=== PATIENT | female | born 1990 | race African-American/Black ===

== ENCOUNTER 2017-04-06 18:22 | Observation (INO) ==
[2017-04-06 19:00] LABS: Apearance,Urine Slightly Hazy (Clear); Bacteria,Urine Few /HPF (Few); Bilirubin,Urine Negative (Negative); Blood, Urine Small mg/dL (Negative); Glucose,Urine (UA) Negative (Negative); Ketones,Urine Negative (Negative); Mucus,Urine Few /LPF (Occasional); Nitrite,Urine Positive (Negative); Protein,Urine Negative; RBC,Urine 1 /HPF (0-4); Squamous Epithelial Cell,Urine Occasional /HPF (0-10); Urine Color Yellow (Yellow); Urine Specific Gravity 1.013 (1.001-1.035); Urine Urobilinogen < 2.0 EU/DL (0.2-1.0); WBC,Urine 78 /HPF (0-6)
[2017-04-06] MEDS ORDERED: AMPICILLIN INJ 2,000 MG in SODIUM CHLORIDE 0.9% 50 ML IV ONE (19:38)
[2017-04-06] MEDS ORDERED: ACETAMINOPHEN/CODEINE 300-30 MG TABLET PO PRN (19:41)
[2017-04-06] MEDS: LACTATED RINGERS 1,000 ML IV SCH (20:13)
[2017-04-06] MEDS: ONDANSETRON 4 MG/2 ML VIAL IV PRN (20:18)
[2017-04-06] MEDS: MEPERIDINE 50 MG/1 ML VIAL IV PRN (20:32)
[2017-04-07] MEDS: AMPICILLIN INJ 1,000 MG in SODIUM CHLORIDE 0.9% 50 ML IV SCH ×4 (01:45→19:55)
[2017-04-07] MEDS: LACTATED RINGERS 1,000 ML IV SCH ×6 (01:55→23:15)
[2017-04-07] MEDS: ONDANSETRON 4 MG/2 ML VIAL IV PRN ×3 (04:46→17:53)
[2017-04-07] MEDS: ACETAMINOPHEN 500 MG TABLET PO PRN (08:35)
[2017-04-07] MEDS ORDERED: MAGNESIUM HYDROXIDE SUSP 30 ML UDCUP PO PRN (09:36)
[2017-04-07] MEDS ORDERED: ACETAMINOPHEN 325 MG TABLET PO PRN (09:36)
[2017-04-07] MEDS: GENTAMICIN INJ 120 MG in PREMIX 1 EACH IV SCH ×2 (10:40→17:18)
[2017-04-07] MEDS: MEPERIDINE 50 MG/1 ML VIAL IV PRN ×2 (11:30→17:57)
[2017-04-07 14:43] LABS: Basophils % 0.2 % (0.0-0.8); Eosinophils # 0.2 10*3/uL (0.0-0.87); Eosinophils % 1.7 % (0.00-10.9); Hematocrit 31.9 VOL% (35.7-47.0); Hemoglobin 10.5 GM/DL (12.0-16.0); Immature Granulocytes % 0.3 %; Immature Granulocytes Absolute 0.03 #; Lymphocytes # 2.7 10*3/uL (1.4-4.0); Lymphocytes % 26.1 % (21.3-54.2); Mean Corpuscular HGB Conc 32.9 GM/DL (32-36); Mean Corpuscular Hemoglobin 27 PG (27-34); Mean Corpuscular Volume 82.4 FL (87-102); Mean Platelet Volume 10.3 FL (9.6-12.0); Monocytes # 0.7 10*3/uL (0.11-0.8); Monocytes % 6.7 % (1.7-12.7); Neutrophils # 6.7 10*3/uL (1.4-7.4); Platelet Count 247 T/CUMM (130-400); Red Blood Count 3.87 MC/CUMM (3.8-5.5); Red Cell Distribution Width 14.6 % (9.3-17.3); White Blood Count 10.4 T/CUMM (4-12)
[2017-04-07 15:15] LABS: Alanine Aminotransferase 16 U/L (13-56); Albumin 2.4 G/DL (3.4-5.0); Alkaline Phosphatase 64 U/L (45-117); Aspartate Amino Transferase 14 U/L (0-37); Bilirubin,Total < 0.39 MG/DL (0.2-1.0); Blood Urea Nitrogen 5 MG/DL (7-18); Calcium 8.1 MG/DL (8.5-10.1); Glucose 85 MG/DL (74-106); Osmolality,Calculated 268.8 MOS/KG (273-304); Potassium 3.9 MMOL/L (3.5-5.1); Sodium 137 MMOL/L (136-145); Total Protein 6.1 G/DL (6.4-8.3)
[2017-04-07 15:35] LABS: Hepatitis B Surface Ag Quant < 0.10 Index; Hepatitis B Surface Ag Result Negative (Negative)
[2017-04-07 15:35] LABS: Rubella Antibody IgG 16.7 IU/ML
[2017-04-07 16:03] LABS: HIV Antigen/Antibody Result Nonreactive (Nonreactive)
[2017-04-08] MEDS: GENTAMICIN INJ 120 MG in PREMIX 1 EACH IV SCH ×2 (01:28→10:13)
[2017-04-08] MEDS: AMPICILLIN INJ 1,000 MG in SODIUM CHLORIDE 0.9% 50 ML IV SCH ×2 (02:33→07:57)
[2017-04-08] MEDS: LACTATED RINGERS 1,000 ML IV SCH ×2 (07:58→17:29)
[2017-04-08] MEDS: ACETAMINOPHEN 500 MG TABLET PO PRN (10:16)
[2017-04-08] MEDS: ONDANSETRON 4 MG/2 ML VIAL IV PRN ×2 (11:44→23:24)
[2017-04-08] MEDS: MEPERIDINE 50 MG/1 ML VIAL IV PRN ×2 (11:45→23:30)
[2017-04-08] MEDS: ceFAZolin 1,000 MG in SYRINGE 1 EACH IV SCH ×2 (13:54→21:27)
[2017-04-08] MEDS: FERROUS SULFATE 325 MG TABLET PO SCH ×2 (14:52→21:27)
[2017-04-08] MEDS ORDERED: GENTAMICIN INJ 500 MG in SODIUM CHLORIDE 0.9% 100 ML IV SCH (18:00)
[2017-04-08] MEDS ORDERED: TERCONAZOLE 0.4% VAG CREAM 45 GM TUBE VAG SCH (23:45)
[2017-04-09] MEDS: LACTATED RINGERS 1,000 ML IV SCH (00:51)
[2017-04-09] MEDS ORDERED: SODIUM CHLORIDE 0.9% 50 ML IV ONE (02:20)
[2017-04-09] MEDS: ceFAZolin 1,000 MG in SYRINGE 1 EACH IV SCH ×2 (02:25→08:26)
[2017-04-09 07:25] VITALS: BP 118/72
== END 2017-04-09 11:10 | disposition home or self-care (01) ==
LOC: N.LDOUT 18:22 → N.OB 18:22 → N.LD 18:26 → N.OB 04-07 11:09
PROVIDERS: ADMIT Obstetrics & Gynecology; ATTEND Obstetrics & Gynecology

== ENCOUNTER 2017-07-21 07:09 | Inpatient (IN) ==
[2017-07-21] MEDS ORDERED: FAMOTIDINE 20 MG/2 ML VIAL IV ONE (07:37)
[2017-07-21] MEDS ORDERED: CITRIC ACID/SODIUM CITRATE 30 ML UDCUP PO ONE (07:37)
[2017-07-21] MEDS ORDERED: ceFAZolin 1,000 MG in SYRINGE 1 EACH IV ONE (07:37)
[2017-07-21] MEDS ORDERED: LACTATED RINGERS 1,000 ML IV SCH (08:00)
[2017-07-21 08:35] LABS: Basophils % 0.3 % (0.0-0.8); Eosinophils # 0.1 10*3/uL (0.0-0.87); Eosinophils % 0.6 % (0.00-10.9); Hematocrit 34.6 VOL% (35.7-47.0); Hemoglobin 10.9 GM/DL (12.0-16.0); Immature Granulocytes % 0.5 %; Immature Granulocytes Absolute 0.07 #; Lymphocytes # 3.6 10*3/uL (1.4-4.0); Lymphocytes % 24.5 % (21.3-54.2); Mean Corpuscular HGB Conc 31.5 GM/DL (32-36); Mean Corpuscular Hemoglobin 27 PG (27-34); Mean Corpuscular Volume 84.2 FL (87-102); Mean Platelet Volume 10.5 FL (9.6-12.0); Monocytes % 7.1 % (1.7-12.7); Neutrophils # 9.8 10*3/uL (1.4-7.4); Platelet Count 282 T/CUMM (130-400); Red Blood Count 4.11 MC/CUMM (3.8-5.5); Red Cell Distribution Width 13.6 % (9.3-17.3); White Blood Count 14.5 T/CUMM (4-12)
[2017-07-21] MEDS ORDERED: OXYTOCIN 10 UNIT/ML VIAL IM ONE (08:50)
[2017-07-21 10:03] LABS: Cord Venous Blood HCO3 23.4 MMOL/L; Cord Venous Blood PCO2 41.7 MMHG; Cord Venous Blood PO2 32.7 MMHG
[2017-07-21 10:11] LABS: Apearance,Urine CLEAR (Clear); Bilirubin,Urine Negative (Negative); Blood, Urine Small mg/dL (Negative); Glucose,Urine (UA) Negative (Negative); Ketones,Urine 20 mg/dL (Negative); Mucus,Urine Many /LPF (Occasional); Nitrite,Urine Negative (Negative); Protein,Urine 30 MG/DL; RBC,Urine 2 /HPF (0-4); Squamous Epithelial Cell,Urine Occasional /HPF (0-10); Urine Color Yellow (Yellow); Urine Specific Gravity 1.025 (1.001-1.035); Urine Urobilinogen < 2.0 EU/DL (0.2-1.0); WBC,Urine 4 /HPF (0-6)
[2017-07-21] MEDS ORDERED: OXYTOCIN/LR 30 UNIT/1,000 ML BAG IV ONE (10:17)
[2017-07-21] MEDS ORDERED: MORPHINE 10 MG/10 ML VIAL ONE (11:30)
[2017-07-21] MEDS ORDERED: fentaNYL 100 MCG/2 ML VIAL ONE (11:30)
[2017-07-21] MEDS ORDERED: ONDANSETRON 4 MG/2 ML VIAL ONE (11:38)
[2017-07-21] MEDS ORDERED: SODIUM BICARBONATE 2.4 MEQ/5 ML VIAL ONE (11:38)
[2017-07-21] MEDS ORDERED: LACTATED RINGERS 1,000 ML IV ONE (11:39)
[2017-07-21] MEDS ORDERED: LIDOCAINE MPF 2% /EPI 20 ML VIAL ONE (11:39)
[2017-07-21] MEDS ORDERED: OXYTOCIN/LR 20 UNIT/1,000 ML BAG IV ONE ×2 (11:46→14:12)
[2017-07-21] MEDS ORDERED: hydrOXYzine HCL 25 MG/1 ML VIAL IM PRN (12:26)
[2017-07-21] MEDS ORDERED: ONDANSETRON 4 MG/2 ML VIAL IV PRN ×2 (12:26→14:12)
[2017-07-21] MEDS: HYDROmorphone 2 MG/1 ML VIAL IV PRN ×3 (12:45→20:32)
[2017-07-21] MEDS: diphenhydrAMINE 50 MG/1 ML VIAL IV PRN ×2 (13:45→20:33)
[2017-07-21] MEDS ORDERED: ceFAZolin 1,000 MG in SYRINGE 1 EACH IV SCH (14:12)
[2017-07-21] MEDS ORDERED: ACETAMINOPHEN 325 MG TABLET PO PRN (14:12)
[2017-07-21] MEDS ORDERED: RHO(D) IMMUNE GLOBULIN 300 MCG SYRINGE IM ONE (14:12)
[2017-07-21] MEDS: hydrOXYzine HCL 25 MG TABLET PO PRN ×2 (14:32→20:17)
[2017-07-21] MEDS: ceFAZolin 1,000 MG in SYRINGE 1 EACH IV SCH (17:47)
[2017-07-21 18:34] LABS: Basophils % 0.2 % (0.0-0.8); Eosinophils # 0.1 10*3/uL (0.0-0.87); Eosinophils % 0.5 % (0.00-10.9); Hematocrit 31.9 VOL% (35.7-47.0); Hemoglobin 10.2 GM/DL (12.0-16.0); Immature Granulocytes % 0.5 %; Immature Granulocytes Absolute 0.06 #; Lymphocytes # 2.4 10*3/uL (1.4-4.0); Lymphocytes % 18.3 % (21.3-54.2); Mean Corpuscular Hemoglobin 27 PG (27-34); Mean Corpuscular Volume 84.4 FL (87-102); Mean Platelet Volume 10.1 FL (9.6-12.0); Monocytes # 0.9 10*3/uL (0.11-0.8); Monocytes % 6.8 % (1.7-12.7); Neutrophils # 9.8 10*3/uL (1.4-7.4); Neutrophils % 73.7 % (38.7-73.9); Platelet Count 242 T/CUMM (130-400); Red Blood Count 3.78 MC/CUMM (3.8-5.5); Red Cell Distribution Width 13.5 % (9.3-17.3); White Blood Count 13.3 T/CUMM (4-12)
[2017-07-21] MEDS: DOCUSATE SODIUM 100 MG CAPSULE PO SCH (20:08)
[2017-07-21] MEDS: IBUPROFEN 800 MG TABLET PO PRN (20:08)
[2017-07-21] MEDS: LACTATED RINGERS 1,000 ML IV SCH (22:37)
[2017-07-22] MEDS ORDERED: diphenhydrAMINE 50 MG/1 ML VIAL IV PRN (00:24)
[2017-07-22] MEDS ORDERED: ONDANSETRON 4 MG/2 ML VIAL IV PRN (00:25)
[2017-07-22] MEDS: HYDROmorphone 2 MG/1 ML VIAL IV PRN (01:22)
[2017-07-22] MEDS: ceFAZolin 1,000 MG in SYRINGE 1 EACH IV SCH (02:03)
[2017-07-22] MEDS: IBUPROFEN 800 MG TABLET PO PRN ×2 (04:42→17:50)
[2017-07-22] MEDS: LACTATED RINGERS 1,000 ML IV SCH (05:01)
[2017-07-22 06:37] LABS: Basophils % 0.2 % (0.0-0.8); Eosinophils # 0.2 10*3/uL (0.0-0.87); Eosinophils % 1.4 % (0.00-10.9); Hematocrit 29.1 VOL% (35.7-47.0); Hemoglobin 9.4 GM/DL (12.0-16.0); Immature Granulocytes % 0.6 %; Immature Granulocytes Absolute 0.08 #; Lymphocytes # 2.2 10*3/uL (1.4-4.0); Lymphocytes % 17.5 % (21.3-54.2); Mean Corpuscular HGB Conc 32.3 GM/DL (32-36); Mean Corpuscular Hemoglobin 27 PG (27-34); Mean Corpuscular Volume 83.9 FL (87-102); Mean Platelet Volume 10.4 FL (9.6-12.0); Monocytes # 1.2 10*3/uL (0.11-0.8); Monocytes % 9.5 % (1.7-12.7); Neutrophils # 9.1 10*3/uL (1.4-7.4); Neutrophils % 70.8 % (38.7-73.9); Platelet Count 221 T/CUMM (130-400); Red Blood Count 3.47 MC/CUMM (3.8-5.5); Red Cell Distribution Width 13.6 % (9.3-17.3); White Blood Count 12.8 T/CUMM (4-12)
[2017-07-22] MEDS ORDERED: oxyCODONE/ACETAMINOPHEN 5-325 MG TABLET PO PRN (06:44)
[2017-07-22] MEDS: oxyCODONE/ACETAMINOPHEN 5-325 MG TABLET PO PRN ×2 (07:47→17:51)
[2017-07-22] MEDS: DOCUSATE SODIUM 100 MG CAPSULE PO SCH ×2 (08:42→21:36)
[2017-07-22] MEDS: MULTIVITAMIN (PRENATAL) TABLET PO SCH (08:47)
[2017-07-22] MEDS: FERROUS SULFATE 325 MG TABLET PO SCH ×2 (08:47→21:36)
[2017-07-22] MEDS: MAGNESIUM HYDROXIDE SUSP 30 ML UDCUP PO PRN ×2 (08:47→21:36)
[2017-07-22] MEDS ORDERED: diphenhydrAMINE CAP 25 MG CAPSULE ONE (08:49)
[2017-07-22] MEDS ORDERED: diphenhydrAMINE CAP 25 MG CAPSULE PO PRN (08:50)
[2017-07-22] MEDS ORDERED: MEPERIDINE 50 MG/1 ML VIAL ONE (13:22)
[2017-07-22] MEDS ORDERED: MEPERIDINE 50 MG/1 ML VIAL IV ONE (13:27)
[2017-07-22] MEDS ORDERED: MEPERIDINE 50 MG/1 ML VIAL IM ONE (19:38)
[2017-07-22] MEDS ORDERED: ONDANSETRON 4 MG TABLET PO PRN (19:39)
[2017-07-22] MEDS ORDERED: BISACODYL 10 MG SUPP RECTAL PRN (19:40)
[2017-07-22] MEDS: METOCLOPRAMIDE 10 MG TABLET PO SCH (19:49)
[2017-07-22] MEDS: SIMETHICONE CHEW 80 MG TABLET PO PRN (21:37)
[2017-07-23] MEDS: IBUPROFEN 800 MG TABLET PO PRN (02:09)
[2017-07-23] MEDS: oxyCODONE/ACETAMINOPHEN 5-325 MG TABLET PO PRN ×3 (02:10→12:16)
[2017-07-23] MEDS: METOCLOPRAMIDE 10 MG TABLET PO SCH ×2 (03:46→12:17)
[2017-07-23] MEDS ORDERED: IBUPROFEN 800 MG TABLET PO PRN (04:48)
[2017-07-23] MEDS ORDERED: oxyCODONE/ACETAMINOPHEN 5-325 MG TABLET PO PRN (04:49)
[2017-07-23] MEDS: SIMETHICONE CHEW 80 MG TABLET PO PRN (06:16)
[2017-07-23 07:54] VITALS: BP 105/66
[2017-07-23] MEDS: DOCUSATE SODIUM 100 MG CAPSULE PO SCH (08:54)
[2017-07-23] MEDS: FERROUS SULFATE 325 MG TABLET PO SCH (08:54)
[2017-07-23] MEDS: MAGNESIUM HYDROXIDE SUSP 30 ML UDCUP PO PRN (08:54)
[2017-07-23] MEDS: MULTIVITAMIN (PRENATAL) TABLET PO SCH (08:54)
[2017-07-23] MEDS ORDERED: DIPH/TET/ACEL PERT BOOSTER VACCINE 0.5 ML VIAL IM ONE (11:58)
== END 2017-07-23 14:40 | disposition home or self-care (01) | DRG 540 ==
LOC: N.LDOUT 07:09 → N.LD 07:38 → N.OB 13:54
PROVIDERS: ADMIT Obstetrics & Gynecology; ATTEND Obstetrics & Gynecology
PROC: LDCSECT (ICD-10-PCS; 2017-07-21 09:00)